=== PATIENT | male | born 1965 | race African-American/Black ===

== ENCOUNTER 2022-03-08 12:47 | Emergency (ER) | payer OTHER ==
[~2022-03-08] VITALS: Ht 177.8 cm; Wt 99.8 kg
--- NOTE | 2022-03-08 12:53 | NUR ---
[id number] C/O LT HIP PAIN, PT FOUND SITTING ON A TOILET AT A CLINIC. VITALS WITHIN NORMAL LIMTIS, NO RESP DISTRESS NOTED. AWAITING MD BECKHAM.
[2022-03-08] MEDS ORDERED: NAPR-1192 PO (16:22)
[2022-03-08 17:07] VITALS: BP 130/92
== END 2022-03-08 17:09 | disposition home or self-care (01) ==
LOC: ER 12:50
DX: G89.29 Other chronic pain (principal); M25.552 Pain in left hip; I10 Essential (primary) hypertension; E11.9 Type 2 diabetes mellitus without complications; F32.A Depression, unspecified; Z98.890 Other specified postprocedural states; Z59.00 Homelessness unspecified; Z79.899 Other long term (current) drug therapy
CPT/HCPCS: 73502